=== PATIENT | male | born 1965 | race Caucasian/White ===

== ENCOUNTER 2018-11-11 09:26 | Emergency (ER) | payer BC, OTHER ==
[2018-11-11] MEDS ORDERED: DEXAMETHASONE 10 MG/ML VIAL PO STA (11:40)
[2018-11-11] MEDS ORDERED: CHERRY SYRUP 10 ML UDC PO ONE (11:40)
--- NOTE | 2018-11-11 12:25 | XRAY Report ---
Reason: shoulder pain Procedure Date: 11/11/2018 Accession Number: [id number] / [id number] Procedure: XR - Shoulder 3 View LT CPT Code: FULL RESULT: EXAM: LEFT SHOULDER RADIOGRAPHY EXAM DATE: 11/11/2018 12:03 PM. CLINICAL HISTORY: Shoulder pain. COMPARISON: None. TECHNIQUE: 3 views. FINDINGS: Bones: Normal. No fracture or bone lesion. Joints: Mild degenerative changes present. Calcific tendinosis is noted about the supraspinatus insertion. Soft tissues: The visualized hemithorax is unremarkable. No soft tissue swelling. IMPRESSION: Mild degenerative changes noted, with calcific tendinosis about the supraspinatus insertion. [facility]IA
--- NOTE | 2018-11-11 13:03 | ED Physician Documentation ---
PD HPI UPPER EXT INJURY - Stated complaint Stated Complaint: SHOULDER PX - Chief complaint Chief Complaint: Ext Problem - History obtained from History obtained from: Patient, Family - History of Present Illness Location: Left, Shoulder Type of injury: Other (skipping rocks) [place]: [place] Timing - onset: How many days ago (3) Timing - duration: Days (3) Timing - details: Gradual onset, Still present Improved by: Rest, Immobilization Worsened by: Moving, Palpating Associated symptoms: No: Weakness, Numbness, Tingling, Swelling Contributing factors: No: Anticoagulated Similar symptoms before: Diagnosis (tendonitis) Recently seen: Not recently seen - Additonal information Additional information: 53[place]year[place] acute left shoulder pain. He indicates that the day prior to development of this pain he had been skipping rocks with his left hand and he is left-handed. He skipped a lot of rocks and he did not have pain initially pain developed over the next day. He now has severe pain anytime he tries to move his arm especially if he tries to abduct the arm. Review of Systems Constitutional: denies: Fever Eyes: denies: Decreased vision Ears: denies: Ear pain Nose: denies: Congestion Throat: denies: Sore throat Cardiac: denies: Chest pain / pressure Respiratory: denies: Dyspnea, Cough GI: denies: Abdominal Pain : denies: Dysuria, Frequency Skin: denies: Rash Musculoskeletal: reports: Joint pain. denies: Neck pain, Back pain PD PAST MEDICAL HISTORY - Past Medical History Past Medical History: No - Past Surgical History Past Surgical History: Yes - Present Medications Home Medications: Ambulatory Orders Medication Instructions Recorded Confirmed Hydrocodone/Acetaminophen 1 - 2 each PO Q6H PRN #14 tablet 11/11/18 [Hydrocodon-Acetaminophen 5-325] - Allergies Allergies/Adverse Reactions: Allergies Allergy/AdvReac Type Severity Reaction Status Date / Time No Known Drug Allergies Allergy Verified 11/11/18 09:45 - Social History Does the pt smoke?: No Smoking Status: Never smoker Does the pt drink ETOH?: Yes ETOH Use: Beer Does the pt have substance abuse?: No - Immunizations Immunizations are current?: Yes PD ED PE NORMAL - Vitals Vital signs reviewed: Yes (hypertensive ) - General General: Alert and oriented X 3, No acute distress, Well developed/nourished - HEENT HEENT: Atraumatic, PERRL, EOMI - Neck Neck: Supple, no meningeal sign - Respiratory Respiratory: No respiratory distress - Derm Derm: Normal color, Warm and dry, No rash - Extremities Extremities: No deformity, No edema, Other (There is specific point tenderness to the left shoulder over the anterior deltoid. He is unble to hold the shoulder in abduction. DIstal n/v is intact. ) - Neuro Neuro: Alert and oriented X 3, clay transporter 2-12 intact, No motor deficit, No sensory deficit, Normal speech Eye Opening: Spontaneous Motor: Obeys Commands Verbal: Oriented GCS Score: 15 - Psych Psych: Normal mood, Normal affect Results - Vitals Vitals: Vital Signs - 24 hr 11/11/18 09:43 Temperature 36.9 C Heart Rate 99 Respiratory 18 Rate Blood Pressure 143/93 H O2 Saturation 95 Oxygen O2 Source Room air - Rads (name of study) shoulder Radiology: Prelim report reviewed (Impression: Mild degenerative changes noted, with calcific tendinitis about the supraspinatus insertion.), EMP read indepedently, See rad report PD MEDICAL DECISION MAKING - ED course Complexity details: considered differential, d/w patient, d/w family ED course: 53-year-old male with calcific tendinitis is administered dexamethasone 10 mg orally. Departure - Departure Disposition: 01 Home, Self Care Clinical Impression: Calcific tendonitis of left shoulder Condition: Stable Instructions: ED Tendinitis Calcific Follow-Up: Your, doctor [Other] Prescriptions: Hydrocodone/Acetaminophen [Hydrocodon-Acetaminophen 5-325] 1 - 2 each PO Q6H PRN #14 tablet PRN Reason: pain
[2018-11-11 13:20] VITALS: BP 145/92
== END 2018-11-11 13:19 | disposition home or self-care (01) ==
LOC: ED 09:26
DX: M75.32 Calcific tendinitis of left shoulder (principal)
CPT/HCPCS: 73030; 99283; 99284; A9270